=== PATIENT | female | born 1975 | race Caucasian/White ===

== ENCOUNTER 2016-10-11 14:24 | Emergency (ER) | payer OTHER, MEDICARE ==
[~2016-10-11] VITALS: Ht 167.6 cm; Wt 90.7 kg
[~2016-10-11 14:24] MED LIST: ANUSOL HC-HEMOR1 SUP RC; ANUSOL HC30 GM TOP; CIPRO 500MG TA500 MG PO; DOCUSATE SODIU100 MG PO; GUAIFENESIN-COD10 ML PO; LEVOTHYROXINE200 MC1 PO; MOTRIN 800MG T800 MG PO; NORVIR100 MG PO; PERCOCET 325 MG1 TA2 PO; PRENATAL1 TA2 PO; PRILOSEC OTC20 MG PO; PROCTOFOAM-HC 11 FOA RC; PYRIDIUM200 MG PO; REYATAZ300 MG PO; TRIAMCINOL0.1 %/453 TOP; TRUVADA 200 MG-1 TAB PO; ZOFRAN ODT4 M1 PO
[2016-10-11 14:28] VITALS: BP 119/80
--- NOTE | 2016-10-11 15:12 | RADIOLOGY REPORT ---
EXAMINATION: XR WRIST, LEFT CLINICAL INFORMATION: Left wrist pain. COMPARISON: None TECHNIQUE: AP, lateral, and oblique views of the left wrist. FINDINGS: The bones and soft tissues are normal. No fracture. Alignment is anatomic with normal joint spaces. No erosions or abnormal soft tissue calcifications. IMPRESSION: Unremarkable left wrist exam.
--- NOTE | 2016-10-11 15:19 | ED HAND/WRIST INJURY COMPLAINT ---
History of Present Illness General Chief Complaint: Hand or Wrist Injury Stated Complaint: L WRIST PAIN Source: patient Exam Limitations: no limitations Vital Signs & Intake/Output Vital Signs & Intake/Output Vital Signs Date Time Temp Pulse Resp B/P Pulse O2 O2 Flow FiO2 Ox Delivery Rate 10/11 1428 95.8 96 18 119/80 97 Room Air Allergies Coded Allergies: honey (Intermediate, RASH, GI, N/V 10/01/15) Reconcile Medications Atazanavir Sulfate (Reyataz) 300 MG CAPSULE 1 CAP PO DAILY ANTIVIRAL ( Reported) with food Emtricitabine/Tenofovir (Truvada 200 MG-300 MG Tablet) 200 MG-300 MG TABLET 1 TAB PO DAILY ANTIVIRAL (Reported) Emtricitabine/Tenofovir Diso (Truvada) 1 TAB TAB 1 TAB PO DAILY ANTIVIRAL ( Reported) Levothyroxine Sodium 200 MCG TABLET 1 TAB PO DAILY AC THYROID (Reported) Meloxicam (Mobic) 15 MG TABLET 1 TAB PO DAILY pain Ondansetron (Zofran Odt) 4 MG TAB.RAPDIS 1 TAB PO Q6 PRN NAUSEA Ritonavir (Norvir) 100 MG SGL 1 SGL PO DAILY ANTIVIRAL (Reported) Triage Note: PT C/O LEFT WRIST PAIN STARTING YESTERDAY. DENIES TRAUMA. PT STATES SHE HAS SELF MEDICATED WITH TYLENOL AND TOOK LAST DOES AT 1330 TODAY Triage Nurses Notes Reviewed? yes Duration: day(s): (3), constant Timing: recent history Severity: moderate, severe Pain/Injury Location: Left: Wrist. No Modifying Factors: none : No Patient currently breastfeeds: No HPI: 40-year-old female comes into emergency room with complaints of left wrist pain. Patient reports that the pain has been going on for the past 3-5 days. Patient reports that she was hanging a light fixture the other day and noticed the pain started after that. Denies any falls or trauma. Pain is worse with any type of range of motion. Denies any redness swelling or discomfort over the area. Denies any prior history of these symptoms. Past History Travel History Traveled to [place] past 21 day No Medical History Any Pertinent Medical History? see below for history Neurological: migraine, seizure EENT: NONE Cardiovascular: NONE Respiratory: obstructive sleep apnea Gastrointestinal: HEARTBURN Hepatic: NONE Renal: NONE Musculoskeletal: NONE Psychiatric: NONE Endocrine: hypothyroidism Blood Disorders: HIV+ Cancer(s): NONE Other Medical Hx: hiv History of MRSA: No History of VRE: No History of CDIFF: No Tetanus Vaccine: 06/27/13 Surgical History Surgical History: non-contributory Psychosocial History What is your primary language Uzbek Tobacco Use: Current Daily Use Daily Tobacco Use Amount/Type: =< 4 Cigarettes daily Family History Family History, If Any: FATHER (diabetes, htn). MOTHER (diabetes, htn). Hx Contributory? No Review of Systems Review of Systems Constitutional: Reports: no symptoms. EENTM: Reports: no symptoms. Respiratory: Reports: no symptoms. Cardiovascular: Reports: no symptoms. GI: Reports: no symptoms. Genitourinary: Reports: no symptoms. Musculoskeletal: Reports: see HPI. Skin: Reports: no symptoms. Neurological/Psychological: Reports: no symptoms. Hematologic/Endocrine: Reports: no symptoms. Immunologic/Allergic: Reports: no symptoms. All Other Systems: Reviewed and Negative Physical Exam Physical Exam General Appearance: well developed/nourished, mild distress Head: atraumatic Eyes: Bilateral: normal appearance. Ears, Nose, Throat: normal ENT inspection, hearing grossly normal Neck: normal inspection Cardiovascular/Respiratory: no respiratory distress Back: normal inspection Wrist Left: soft tissue tenderness, limited range of motion Hand Left: normal inspection, normal range of motion Hand Right: normal inspection, normal range of motion Neurologic/Tendon: normal sensation, normal motor functions, normal tendon functions, responds to pain, no evidence tendon injury, no pulse deficit Skin: intact, normal color, warm/dry Lymphatic: no anterior cervical [place] Progress Differential Diagnosis: cellulitis, contusion, dislocation, fracture, paronychia , septic arthritis, sprain, tenosynovitis, tendinitis Plan of Care: Orders Procedure Date/time Status Durable Medical Equipment 10/11 1522 Active Diagnostic Imaging: Viewed by Me: Radiology Read. Discussed w/RAD: Radiology Read. Radiology Impression: SERVICE DATE: 10/11/16143 EXAM TYPE: RAD - XRY-WRIST COMPLETE-LEFT EXAMINATION: XR WRIST, LEFT CLINICAL INFORMATION: Left wrist pain. COMPARISON: None TECHNIQUE: AP, lateral, and oblique views of the left wrist. FINDINGS: The bones and soft tissues are normal. No fracture. Alignment is anatomic with normal joint spaces. No erosions or abnormal soft tissue calcifications. IMPRESSION: Unremarkable left wrist exam. DICTATED BY: POLI BYRD, LONNIE DATE/TIME DICTATED:10/11/161505 STEAMFITTER:[id number] DATE/TIME TRANSCRIBED:10/11/161505 CONFIDENTIAL, DO NOT COPY WITHOUT APPROPRIATE AUTHORIZATION. <Electronically signed in Other Vendor System> SIGNED BY: LONNIE ASHTON MD 10/11/161511 Departure Departure Disposition: HOME OR SELF CARE Condition: Stable Clinical Impression Primary Impression: Tendinitis of left wrist Referrals: CHRISTIN BYRD,KRYSTA JUAN MD,ALDAIR Small (PCP/Family) Additional Instructions: Take Mobic as prescribed. Ice. Use wrist splint. Follow-up with orthopedic doctor if not better in 5-7 days. Departure Forms: Customer Survey General Discharge Information Prescriptions: Current Visit Scripts Meloxicam (Mobic) 1 TAB PO DAILY #20 TAB Procedures Splinting Location: left wrist Manual Alignment Performed: No Pre-Made Type: velcro Splint: thumb spica, wrist Splint Applied By: splint applied by me Pre-Proc Neuro Vasc Exam: normal Post-Proc Neuro Vasc Exam: normal
[2016-10-11] MEDS ORDERED: TRUVADA 200 MG1 EACH PO (15:23)
[2016-10-11] MEDS ORDERED: MOBIC15 M1 PO (15:25)
== END 2016-10-11 15:38 ==
LOC: ERH 14:24
DX: M77.8 Other enthesopathies, not elsewhere classified (principal)
CPT/HCPCS: 73110-LT